=== PATIENT | male | born 1950 | race African-American/Black ===

== ENCOUNTER → 2017-03-21 | Outpatient (CLI) | payer OTHER, MEDICAID ==
[2017-03-21 10:08] VITALS: BP 131/84
[2017-03-21 14:44] LABS: BASOPHILS % (AUTO) 0.7 % (0.2-1.0); EOSINOPHILS % (AUTO) 0.8 % (0.9-2.9); HEMATOCRIT 42.9 % (42.0-54.0); HEMOGLOBIN 14.3 g/dL (13.5-18.0); LYMPHOCYTES # (AUTO) 1.1 X10^3/uL (1.3-2.9); LYMPHOCYTES % (AUTO) 36.2 % (21.0-51.0); MEAN CORPUSCULAR HEMOGLOBIN 29.5 pg (27.0-34.0); MEAN CORPUSCULAR HGB CONC 33.3 g/dL (33.0-35.0); MEAN CORPUSCULAR VOLUME 88.6 fL (80.0-100.0); MEAN PLATELET VOLUME 7.3 fL (7.4-11.0); MONOCYTES # (AUTO) 0.3 x10^3/uL (0.3-0.8); MONOCYTES % (AUTO) 11.5 % (0.0-13.0); NEUTROPHILS # (AUTO) 1.5 x10^3/uL (2.2-4.8); NEUTROPHILS % (AUTO) 50.8 % (42.0-75.0); PLATELET COUNT 236 X10^3/uL (150.0-450.0); RED BLOOD COUNT 4.84 X10^6/uL (4.7-6.0); RED CELL DISTRIBUTION WIDTH 13.3 % (11.6-16.5); WHITE BLOOD COUNT 3.1 X10^3/uL (3.6-10.0)
[2017-03-21 15:32] LABS: ALANINE AMINOTRANSFERASE 64 Units/L (12-78); ALKALINE PHOSPHATASE 75 Units/L (46-116); ASPARTATE AMINO TRANSFERASE 84 Units/L (15-37); BLOOD UREA NITROGEN 18 mg/dL (7-18); CALCIUM 9.2 mg/dL (8.5-10.1); CARBON DIOXIDE 22.1 mmol/L (21-32); CHLORIDE 104 mmol/L (98-107); CREATININE 1.32 mg/dL (0.70-1.30); GLUCOSE 93 mg/dL (65-99); SODIUM 141 mmol/L (136-145); TOTAL PROTEIN 8.4 g/dL (6.4-8.2); eGFR BLACK RACES > 60 (>60); eGFR NON BLACK RACES 58 (>60)
== END ==
LOC: LAB 14:18
PROVIDERS: ATTEND Internal Medicine Medical Oncology
DX: C22.0 Liver cell carcinoma (principal)
CPT/HCPCS: 36415; 80053; 85025

== ENCOUNTER → 2017-04-17 | Outpatient (CLI) | payer OTHER, MEDICAID ==
[2017-03-21 10:08] VITALS: BP 131/84
[2017-04-17 14:27] LABS: BASOPHILS % (AUTO) 0.8 % (0.2-1.0); EOSINOPHILS % (AUTO) 1.1 % (0.9-2.9); HEMATOCRIT 41.5 % (42.0-54.0); LYMPHOCYTES # (AUTO) 0.7 X10^3/uL (1.3-2.9); LYMPHOCYTES % (AUTO) 27.1 % (21.0-51.0); MEAN CORPUSCULAR HEMOGLOBIN 30.1 pg (27.0-34.0); MEAN CORPUSCULAR HGB CONC 33.6 g/dL (33.0-35.0); MEAN CORPUSCULAR VOLUME 89.4 fL (80.0-100.0); MEAN PLATELET VOLUME 8.1 fL (7.4-11.0); MONOCYTES # (AUTO) 0.3 x10^3/uL (0.3-0.8); MONOCYTES % (AUTO) 10.6 % (0.0-13.0); NEUTROPHILS # (AUTO) 1.7 x10^3/uL (2.2-4.8); NEUTROPHILS % (AUTO) 60.4 % (42.0-75.0); PLATELET COUNT 215 X10^3/uL (150.0-450.0); RED BLOOD COUNT 4.64 X10^6/uL (4.7-6.0); RED CELL DISTRIBUTION WIDTH 12.8 % (11.6-16.5); WHITE BLOOD COUNT 2.7 X10^3/uL (3.6-10.0)
[2017-04-17 14:37] LABS: ALANINE AMINOTRANSFERASE 52 Units/L (12-78); ALBUMIN 3.7 g/dL (3.4-5.0); ALKALINE PHOSPHATASE 76 Units/L (46-116); ASPARTATE AMINO TRANSFERASE 60 Units/L (15-37); BLOOD UREA NITROGEN 15 mg/dL (7-18); CARBON DIOXIDE 29.6 mmol/L (21-32); CHLORIDE 106 mmol/L (98-107); CREATININE 1.02 mg/dL (0.70-1.30); GLUCOSE 96 mg/dL (65-99); SODIUM 144 mmol/L (136-145); TOTAL PROTEIN 7.7 g/dL (6.4-8.2); eGFR BLACK RACES > 60 (>60); eGFR NON BLACK RACES > 60 (>60)
== END ==
LOC: LAB 13:23
PROVIDERS: ATTEND Internal Medicine Medical Oncology
DX: C22.0 Liver cell carcinoma (principal)
CPT/HCPCS: 36415; 80053; 85025

== ENCOUNTER → 2017-04-30 | Outpatient (CLI) | payer OTHER, MEDICAID ==
[2017-03-21 10:08] VITALS: BP 131/84
[2017-04-30 09:07] LABS: CREATININE 0.99 mg/dL (0.70-1.30)
--- NOTE | 2017-04-30 12:18 | MRI ---
MRI OF THE ABDOMEN WITHOUT AND WITH IV CONTRAST Clinical indication: Liver cancer Procedure: Multiplanar multi sequence MRI of the abdomen were obtained with and without the administ ration of intravenous contrast according to standard departmental protocol. Contrast: 15 cc of omni scan. Comparisons: CT 10/09/2016. MRI 10/23/2016 Findings: MRI of the abdomen without contrast: No significant iron or fat deposition in the liver or spleen. N o significant ascites. MRI of the abdomen with contrast: Liver and spleen are normal in size. Redemonstrated within segmen t 4A of the liver is a hypo enhancing mass measuring 8.7 x 5.3 cm on series 12/01/2000 image 25. Previ ously this measured 6.2 x 4.4 cm. There are new, multiple, similar signal, satellite lesions identif ied throughout the liver. For example a cluster of lesions in segment 4 B on series 1701, image 42. Gallbladder is present. No gallstones. No filling defects within the common bile duct. No ductal di latation. Pancreas demonstrates normal T1 signal. No pancreatic masses. Adrenal glands are normal. K idneys demonstrate normal cortical medullary differentiation. No hydronephrosis. Visualized bowel is unremarkable. No suspicious lymph nodes. Impression: 1. Interval enlargement of right liver mass with multiple new satellite lesions. Findings highly con cerning for malignancy. Recommend tissue sampling if not already performed. No definite distant meta static disease seen on this study. Reported By:
== END ==
LOC: RAD 08:35
PROVIDERS: ATTEND Surgery
DX: C22.0 Liver cell carcinoma (principal)
CPT/HCPCS: 36415; 74182; 82565; 84520

== ENCOUNTER 2017-06-03 09:40 | Emergency (ER) | payer OTHER, MEDICAID ==
[2017-06-03 09:43] VITALS: BP 135/84; BMI 21.5
--- NOTE | 2017-06-03 10:35 | DR.GENAD ---
HPI - PCP Primary Care Physician: Negro VILCHIS - Complaint/Symptoms Chief Complaint Doctors Comments: Patient presents with c/o right upper quadrant pain with inspiration. He was diagnosed with a liver mass via MRI (04/30) with comparison of previous test 10/23/16. He has been seeing Dr WHITMORE in [facility] but patient has been a No Show for four months. Dr Whitmore's office gave him an appoint for tomorrow at 1030 for evaluation of his MRI results Chief Complaint:: PT. C/O RIGHT CHEST WALL PAIN WHICH WORSENS ON INSPRIATION THAT STARTED A FEW DAYS AGO. PT. ALSO WAS HERE FOR A BLOOD PRESSURE CHECK, STATING HE HAS NOT TAKEN HIS MEDICATION IN A FEW DAYS. - Source History Provided: Patient - Mode of Arrival Mode of Arrival: Ambulatory - Timing Onset of Chief Complaint: 05/31/17 PMH - PMH Past Medical History: Yes Past Medical History: Hypertension Past Surgical History: Yes Surgical History: Ortho Surgery - Family History History of Family Medical Conditions: Yes Family Medical History: Sudden Cardiac - Social History Does patient currently use any type of tobacco product: Yes Have you used tobacco products in the last 12 months: Yes Type of Tobacco Use: Cigarettes Does any household member use tobacco: No Alcohol Use: Heavy Do you use any recreational Drugs:: Yes (MARIJUANA) Lives With: Alone Lives Where: Home - infectious screening In the last 2 months have you had wt loss of >10#?: NO Have you had fever, night sweats or hemotysis?: No Have you traveled outside the country in the last 6 months?: No Isolation: Standard ROS - Review of Systems Eyes: No Symptoms Reported ENTM: No Symptoms Reported Respiratoy: No Symptoms Reported Cardiovascular: No Symptoms Reported Gastrointestinal/Abdominal: No Symptoms Reported Genitourinary: No Symptoms Reported Neurological: No Symptoms Reported, Headache Integumentary: No Symptoms Reported Hematologic/Lymphatic: No Symptoms Reported Endocrine: No Symptoms Reported Psychiatric: No Symptoms Reported All Other Systems: Reviewed and Negative PE - Vital Signs Vitals: Temperature 98.2 F Pulse Rate 71 Respiratory Rate 17 Blood Pressure [Left Arm] 170/88 Blood Pressure 135/84 O2 Sat by Pulse Oximetry 97 - General Limitations: No Limitations General Appearance: Alert, In No Apparent Distress - Head Head Exam: Normal Inspection, Atraumatic - Eyes Eye exam: Normal Appearance, PERRL, EOMI - ENT ENT Exam: Normal Exam External Ear Exam: Normal External Inspection TM/Canal Exam: Bilateral Normal Nose Exam: Normal Nose Exam Mouth Exam: Normal Inspection Throat Exam: Normal Inspection - Neck Neck Exam: Normal Inspection - Chest Chest Inspection: Normal Inspection - Respiratory Respiratory Exam: Normal Lung Sounds Bilat Respiratory Exam: Bilateral Clear to Auscultation - Cardiovascular Cardiovascular Exam: Regular Rate, Normal Rhythm - Abdominal Exam Abdominal Exam: Normal Inspection Abdominal Tenderness: RUQ - Extremities Extremities Exam: Normal Inspection, Full ROM - Back Back Exam: Normal Inspection - Neurologic Neurological Exam: Alert, Oriented X3, CN II-XII Intact - Psychiatric Psychiatric Exam: Normal Affect - Skin Skin Exam: Warm, Dry, Intact - Diagnosis Discharge Problem: Hepatic cancer Qualifiers: Liver malignancy type: unspecified primary liver malignancy Qualified Code(s): C22.8 - Malignant neoplasm of liver, primary, unspecified as to type - Discharge Plan Condition: Stable - Follow ups/Referrals Follow ups/Referrals: BRET VILCHIS [Primary Care Provider] - 3 days - Instructions
== END 2017-06-03 10:44 | disposition home or self-care (01) ==
LOC: ER 09:47
DX: C22.8 Malignant neoplasm of liver, primary, unspecified as to type (principal)
CPT/HCPCS: 99281; 99282

== ENCOUNTER 2017-06-21 10:28 | Emergency (ER) | payer OTHER, MEDICAID ==
[2017-06-21 10:34] VITALS: BP 125/86; BMI 20.7
--- NOTE | 2017-06-21 10:49 | DR.ABDMALE ---
HPI - Time seen Time seen: 10:44 - PCP Primary Care Physician: KENNETH MACEDO - HPI comment HPI Comment: Patient with malignant neoplasm of the liver; has referal to see cancer doctor on 07/01/17. Patient presents with comlaint of right quadrant pain. Denies fever, vomiting or diarrhea. - Complaint Chief Complaint:: PT C/O RIGHT SIDE ABD PAIN AND HE STATES HE WAS DX WITH LIVER CANCER... AND I HAVE AN APPT WITH DR. LEE ON 07/01/16 .. - Mode of arrival Mode of Arrival: Ambulatory - Timing Onset of Chief Complaint: 06/18/17 PMH - PMH Past Medical History: Yes Past Medical History: Hypertension Past Medical History Comment: LIVER CANCER .. Past Surgical History: Yes Surgical History: Ortho Surgery Past Surgical History Comment: LIVER BIOPSY,,, - Family History History of Family Medical Conditions: Yes Family Medical History: Sudden Cardiac - Social History Does patient currently use any type of tobacco product: Yes Have you used tobacco products in the last 12 months: Yes Type of Tobacco Use: Cigarettes How many years tobacco product used: 50 Does any household member use tobacco: No Alcohol Use: None Do you use any recreational Drugs:: No Lives With: Family Lives Where: Home - infectious screening In the last 2 months have you had wt loss of >10#?: NO Have you had fever, night sweats or hemotysis?: No Have you traveled outside the country in the last 6 months?: No Isolation: Standard ROS - Review of Systems Eyes: No Symptoms Reported ENTM: No Symptoms Reported Respiratoy: No Symptoms Reported Cardiovascular: No Symptoms Reported Gastrointestinal/Abdominal: Abdominal Pain (right mid abdomen) Genitourinary: No Symptoms Reported Neurological: No Symptoms Reported Musculoskeletal: No Symptoms Reported Integumentary: No Symptoms Reported Hematologic/Lymphatic: No Symptoms Reported Endocrine: No Symptoms Reported Psychiatric: No Symptoms Reported All Other Systems: Reviewed and Negative PE - Vital Signs Vital Signs: Temp Pulse Resp BP BP Pulse Ox 06/21/17 10:30 98.1 F 69 22 125/86 100 06/03/17 09:40 135/84 12/18/16 12:15 170/88 - General Limitations: No Limitations General Appearance: Alert, In No Apparent Distress - Head Head Exam: Normal Inspection, Atraumatic - Eyes Eye exam: Normal Appearance, PERRL, EOMI - ENT ENT Exam: Normal Exam - Neck Neck Exam: Normal Inspection, Trachea Midline - Chest Chest Inspection: Normal Inspection - Respiratory Respiratory Exam: Normal Lung Sounds Bilat Respiratory Exam: Bilateral Clear to Auscultation - Cardiovascular Cardiovascular Exam: Regular Rate, Normal Rhythm - Abdominal Exam Abdominal Exam: Normal Inspection, Normal Bowel Sounds, Organomegaly (Liver paplapted 5cm below right costal margin) Abdominal Tenderness: RUQ - Rectal Rectal Exam: Deferred - Back Back Exam: Normal Inspection - Extremeties Extremities Exam: Normal Inspection - Exam: Male: Deferred - Neurologic Neurological Exam: Alert, Oriented X3, CN II-XII Intact - Psychiatric Psychiatric Exam: Normal Affect - Skin Skin Exam: Warm, Dry, Intact - Diagnosis Discharge Problem: Hepatic cancer Qualifiers: Liver malignancy type: hepatocellular carcinoma Qualified Code(s): C22.0 - Liver cell carcinoma - Discharge Plan Condition: Stable - Follow ups/Referrals Follow ups/Referrals: YUKI RANGEL [Primary Care Provider] - 3 days - Instructions
== END 2017-06-21 11:15 | disposition home or self-care (01) ==
LOC: ER 10:36
DX: C22.0 Liver cell carcinoma (principal)
CPT/HCPCS: 99281; 99282

== ENCOUNTER → 2017-07-01 | Outpatient (CLI) | payer OTHER, MEDICAID ==
[2017-06-21 10:34] VITALS: BP 125/86
[2017-07-01 10:28] LABS: EOSINOPHILS % (AUTO) 0.6 % (0.9-2.9); HEMATOCRIT 42.3 % (42.0-54.0); LYMPHOCYTES # (AUTO) 0.9 X10^3/uL (1.3-2.9); LYMPHOCYTES % (AUTO) 24.7 % (21.0-51.0); MEAN CORPUSCULAR HEMOGLOBIN 29.5 pg (27.0-34.0); MEAN CORPUSCULAR HGB CONC 33.2 g/dL (33.0-35.0); MEAN CORPUSCULAR VOLUME 88.7 fL (80.0-100.0); MEAN PLATELET VOLUME 7.8 fL (7.4-11.0); MONOCYTES # (AUTO) 0.3 x10^3/uL (0.3-0.8); MONOCYTES % (AUTO) 8.8 % (0.0-13.0); NEUTROPHILS # (AUTO) 2.4 x10^3/uL (2.2-4.8); NEUTROPHILS % (AUTO) 64.9 % (42.0-75.0); PLATELET COUNT 260 X10^3/uL (150.0-450.0); RED BLOOD COUNT 4.76 X10^6/uL (4.7-6.0); RED CELL DISTRIBUTION WIDTH 12.7 % (11.6-16.5); WHITE BLOOD COUNT 3.6 X10^3/uL (3.6-10.0)
[2017-07-01 10:46] LABS: ALANINE AMINOTRANSFERASE 40 Units/L (12-78); ALBUMIN 3.4 g/dL (3.4-5.0); ALKALINE PHOSPHATASE 192 Units/L (46-116); ASPARTATE AMINO TRANSFERASE 97 Units/L (15-37); BLOOD UREA NITROGEN 15 mg/dL (7-18); CALCIUM 8.7 mg/dL (8.5-10.1); CARBON DIOXIDE 27.2 mmol/L (21-32); CHLORIDE 105 mmol/L (98-107); CREATININE 0.93 mg/dL (0.70-1.30); GLUCOSE 107 mg/dL (65-99); SODIUM 141 mmol/L (136-145); TOTAL PROTEIN 7.4 g/dL (6.4-8.2); eGFR BLACK RACES > 60 (>60); eGFR NON BLACK RACES > 60 (>60)
== END ==
LOC: LAB 10:03
PROVIDERS: ATTEND Internal Medicine Medical Oncology
DX: C22.0 Liver cell carcinoma (principal)
CPT/HCPCS: 36415; 80053; 85025

== ENCOUNTER 2017-07-29 12:10 | Emergency (ER) | payer OTHER, MEDICAID ==
[2017-07-29 12:23] VITALS: BP 153/93; BMI 19.8
--- NOTE | 2017-07-29 13:31 | DR.GENAD ---
HPI - PCP Primary Care Physician: [id number] - Complaint/Symptoms Chief Complaint Doctors Comments: I agree with statement. Patient with liver cancer, still being workned by consultants. He has an appointment on tomorrow in [place] according to him. Chief Complaint:: RIGHT SIDE PAIN, PT STATES HE HAS LIVER CA AND HE HAS AN APPOINTMENT IN [place], [place] AT [facility] TOMORROW AT 10AM Self Treatment fo Chief Complaint: PT STATES PAIN IS WORSE TODAY THAN YESTERDAY. - Source History Provided: Patient - Mode of Arrival Mode of Arrival: Ambulatory - Timing Onset of Chief Complaint: 07/28/17 PMH - PMH Past Medical History: Yes Past Medical History: Hypertension Past Medical History Comment: LIVER CANCER Past Surgical History: No Surgical History: Ortho Surgery Past Surgical History Comment: BIOPSY OF LIVER - Family History History of Family Medical Conditions: Yes Family Medical History: Cancer - Social History Does patient currently use any type of tobacco product: Yes Have you used tobacco products in the last 12 months: Yes Type of Tobacco Use: Cigarettes How many years tobacco product used: 40 Does any household member use tobacco: Yes Alcohol Use: Occasionally Do you use any recreational Drugs:: No Lives With: Alone Lives Where: Home - infectious screening In the last 2 months have you had wt loss of >10#?: NO Have you had fever, night sweats or hemotysis?: No Have you traveled outside the country in the last 6 months?: No Isolation: Standard ROS - Review of Systems Eyes: No Symptoms Reported ENTM: No Symptoms Reported Respiratoy: No Symptoms Reported Cardiovascular: No Symptoms Reported Gastrointestinal/Abdominal: Other (hepatic cancer) Genitourinary: No Symptoms Reported Neurological: No Symptoms Reported Musculoskeletal: No Symptoms Reported Integumentary: No Symptoms Reported Hematologic/Lymphatic: No Symptoms Reported Endocrine: No Symptoms Reported Psychiatric: No Symptoms Reported All Other Systems: Reviewed and Negative PE - Vital Signs Vitals: Temperature 98.3 F Pulse Rate 71 Respiratory Rate 20 Blood Pressure [Left Arm] 170/88 Blood Pressure 153/93 O2 Sat by Pulse Oximetry 96 - General General Appearance: Alert, In No Apparent Distress - Head Head Exam: Normal Inspection - Eyes Eye exam: Normal Appearance, PERRL, EOMI - ENT ENT Exam: Normal Exam External Ear Exam: Normal External Inspection Nose Exam: Normal Nose Exam Mouth Exam: Normal Inspection Throat Exam: Normal Inspection - Neck Neck Exam: Normal Inspection, Full ROM - Chest Chest Inspection: Normal Inspection - Respiratory Respiratory Exam: Normal Lung Sounds Bilat Respiratory Exam: Bilateral Clear to Auscultation - Cardiovascular Cardiovascular Exam: Regular Rate - Abdominal Exam Abdominal Exam: Normal Inspection Abdominal Tenderness: RUQ, RLQ (tenderness) - Extremities Extremities Exam: Normal Inspection, Full ROM - Back Back Exam: Normal Inspection, Full ROM - Neurologic Neurological Exam: Alert, Oriented X3, CN II-XII Intact - Psychiatric Psychiatric Exam: Normal Affect - Skin Skin Exam: Warm, Dry, Intact Course - Treatment Treatment: Reviewed previous CT Abdomen - Diagnosis Discharge Problem: Hepatic cancer Qualifiers: Liver malignancy type: unspecified primary liver malignancy Qualified Code(s): C22.8 - Malignant neoplasm of liver, primary, unspecified as to type - Discharge Plan Condition: Stable - Follow ups/Referrals Follow ups/Referrals: YUKI RANGEL [Primary Care Provider] - 3 days - Instructions Instructions: Bunion (Hallux Valgus)
== END 2017-07-29 13:48 | disposition home or self-care (01) ==
LOC: ER 12:25
DX: C22.8 Malignant neoplasm of liver, primary, unspecified as to type (principal)
CPT/HCPCS: 99281; 99282

== ENCOUNTER 2017-09-03 15:11 | Inpatient (IN) | payer OTHER, MEDICAID ==
--- NOTE | 2017-09-03 15:30 | DR.GENAD ---
HPI - PCP Primary Care Physician: dr briscoe in [facility] [facility] - HPI Comment HPI Comment: PATIENT HAD BM YODAY. NAUSEATED. NO FEVER. HISTORY ASCITIS BUT ABDOMINAL SWELLING MORE PAST FEW DAYS. NO FEVER. SOB WHEN LYING DOWN. - Complaint/Symptoms Chief Complaint Doctors Comments: ABDOMINAL PAIN TIMES 4 DAYS.ABDOMINAL DISTENSION. LIVER CANCER. Chief Complaint:: patient stated he has liver cancer and his stomach has been hurting for 4 days and his doctor told him to come to the hospital. - Nurses notes reviewed Nurses Notes Review: Yes - Source History Provided: Patient - Mode of Arrival Mode of Arrival: Ambulatory - Timing Onset of Chief Complaint: 08/30/17 Came on: Suddenly - Duration Duration: Constant Duration: Days - Severity Severity: Moderate PMH - PMH Past Medical History: Yes Past Medical History: Hypertension Past Surgical History: Yes Surgical History: Ortho Surgery - Family History History of Family Medical Conditions: Yes Family Medical History: Cancer - Social History Does patient currently use any type of tobacco product: Yes Have you used tobacco products in the last 12 months: Yes Type of Tobacco Use: Cigarettes How many years tobacco product used: 45 Does any household member use tobacco: No Alcohol Use: None Do you use any recreational Drugs:: No Lives With: Alone Lives Where: Home - infectious screening In the last 2 months have you had wt loss of >10#?: NO Have you had fever, night sweats or hemotysis?: No Have you traveled outside the country in the last 6 months?: No Isolation: Standard ROS - Review of Systems Constitutional: Weakness, Fatigue, Loss of Appetite. negative: Chills, Diaphoresis, Fever Eyes: No Symptoms Reported. negative: Eye Pain, Discharge ENTM: negative: Ear Pain, Nose Discharge, Nose Congestion, Throat Pain Respiratoy: Non-Productive Cough, Short of Breath. negative: Productive Cough, Wheezing, Hemoptysis Cardiovascular: Chest Pain. negative: Edema, Palpitations Gastrointestinal/Abdominal: Abdominal Pain, Nausea. negative: Diarrhea, Vomiting Genitourinary: Pain. negative: Dysuria, Frequency, Hematuria Neurological: Weakness, Dizziness. negative: Headache Musculoskeletal: Back Pain, Muscle Pain Integumentary: Juandice. negative: Change in Hair/Nails Hematologic/Lymphatic: Easy Bleeding, Easy Bruising Endocrine: No Symptoms Reported All Other Systems: Reviewed and Negative PE - Vital Signs Vitals: Temperature 98.6 F Pulse Rate 80 Respiratory Rate 18 Blood Pressure [Left Arm] 170/88 Blood Pressure 133/80 O2 Sat by Pulse Oximetry 100 - General Limitations: No Limitations General Appearance: Alert, In Distress - Head Head Exam: Normal Inspection - Eyes Eye exam: PERRL, EOMI, Scleral Icterus. negative: Conjunctival Injection - ENT ENT Exam: Normal External Ear Exam External Ear Exam: Normal External Inspection TM/Canal Exam: Bilateral Normal Nose Exam: Normal Nose Exam Mouth Exam: Normal Inspection Throat Exam: Normal Inspection - Neck Neck Exam: Trachea Midline - Chest Chest Inspection: Symmetric Chest Wall Rise - Respiratory Respiratory Exam: Normal Lung Sounds Bilat Respiratory Exam: Bilateral Rhonchi, Upper Rhonchi, Lower Rhonchi - Cardiovascular Cardiovascular Exam: Regular Rate, Normal Rhythm, Normal Heart Sounds - Abdominal Exam Abdominal Exam: Normal Bowel Sounds, Distention, Tenderness Abdominal Tenderness: Diffuse, Moderate - Extremities Extremities Exam: negative: Calf Tenderness - Back Back Exam: Paraspinal Tenderness, Vertebral Tenderness (LOWER BACK) - Neurologic Neurological Exam: Alert, Oriented X3, CN II-XII Intact, Normal Gait, Reflexes Normal. negative: Motor Sensory Deficit - Psychiatric Psychiatric Exam: Anxious - Skin Skin Exam: Erythema MDM - Differential Diagnosis Differential Diagnosis: ASCITIS, RESP DISTRESS, ABDOMINAL PAIN, UTI, BOWEL OBSTRUCTION Course - Treatment Treatment: SEE ORDERS. - Consultation Consultation Comments: DISCUSS PATIENT WITH DR. TEE. HE WILL ADMIT PATIENT. - Education/Counseling Education/Counseling: Patient, Education Educated On: Treatment, Diagnosis ROR - Labs Reviewed Laboratory Results Reviewed?: Yes Result Diagrams: 09/03/17 15:42 09/03/17 15:42 - XRAY XRAY Interpreted by: Radiologist XRAY Findings: REPORT DISCUSS WITH PATIENT. - Diagnosis Discharge Problem: Ascites Qualifiers: Ascites type: malignant Qualified Code(s): R18.0 - Malignant ascites Abdominal pain Qualifiers: Abdominal location: generalized Qualified Code(s): R10.84 - Generalized abdominal pain Liver cancer Qualifiers: Liver malignancy type: unspecified liver malignancy Qualified Code(s): C22.9 - Malignant neoplasm of liver, not specified as primary or secondary - Discharge Plan Disposition: ADMITTED INPATIENT Condition: Stable - Follow ups/Referrals - Instructions
[2017-09-03] MEDS ORDERED: DILAUDID INJ IM ONE (15:48)
[2017-09-03] MEDS ORDERED: DILAUDID INJ ONE (15:51)
[2017-09-03 15:52] LABS: BASOPHILS % (AUTO) 0.2 % (0.2-1.0); EOSINOPHILS % (AUTO) 0.3 % (0.9-2.9); HEMATOCRIT 37.5 % (42.0-54.0); HEMOGLOBIN 12.6 g/dL (13.5-18.0); LYMPHOCYTES # (AUTO) 0.7 X10^3/uL (1.3-2.9); LYMPHOCYTES % (AUTO) 10.5 % (21.0-51.0); MEAN CORPUSCULAR HEMOGLOBIN 26.9 pg (27.0-34.0); MEAN CORPUSCULAR HGB CONC 33.5 g/dL (33.0-35.0); MEAN CORPUSCULAR VOLUME 80.2 fL (80.0-100.0); MEAN PLATELET VOLUME 8.1 fL (7.4-11.0); MONOCYTES # (AUTO) 0.3 x10^3/uL (0.3-0.8); MONOCYTES % (AUTO) 4.7 % (0.0-13.0); NEUTROPHILS # (AUTO) 5.4 x10^3/uL (2.2-4.8); NEUTROPHILS % (AUTO) 84.3 % (42.0-75.0); PLATELET COUNT 321 X10^3/uL (150.0-450.0); RED BLOOD COUNT 4.67 X10^6/uL (4.7-6.0); RED CELL DISTRIBUTION WIDTH 14.9 % (11.6-16.5); WHITE BLOOD COUNT 6.4 X10^3/uL (3.6-10.0)
[2017-09-03 16:03] LABS: ALANINE AMINOTRANSFERASE 87 Units/L (12-78); ALBUMIN 3.3 g/dL (3.4-5.0); ALKALINE PHOSPHATASE 374 Units/L (46-116); AMYLASE 101 Units/L (25-115); ASPARTATE AMINO TRANSFERASE 408 Units/L (15-37); BLOOD UREA NITROGEN 11 mg/dL (7-18); CALCIUM 8.9 mg/dL (8.5-10.1); CHLORIDE 98 mmol/L (98-107); COR CA(FOR HYPOALB) 9.5 mg/dL (8.5-10.1); CREATININE 0.92 mg/dL (0.70-1.30); LIPASE 132 Units/L (73-393); SODIUM 134 mmol/L (136-145); TOTAL PROTEIN 7.9 g/dL (6.4-8.2); eGFR BLACK RACES > 60 (>60); eGFR NON BLACK RACES > 60 (>60)
[2017-09-03 16:28] LABS: BILIRUBIN,URINE 1+ (NEGATIVE); BLOOD/HEMOGLOBIN,URINE NEGATIVE (NEGATIVE); GLUCOSE, URINE NEGATIVE (NEGATIVE); KETONES,URINE 1+ (NEGATIVE); LEUKOCYTE ESTERASE ,URINE 1+ (NEGATIVE); NITRITES,URINE NEGATIVE (NEGATIVE); PROTEIN,URINE 2+ (NEGATIVE); UROBILINOGEN,URINE 2+ (NORMAL)
[2017-09-03 16:40] LABS: APPEARANCE,URINE SLIGHTLY HAZY (CLEAR); BACTERIA,URINE 1+ /HPF (NEGATIVE); COLOR,URINE DARK YELLOW (YELLOW); SQUAMOUS EPITHELIAL CELL,UR RARE /HPF (NEGATIVE)
[2017-09-03 16:41] LABS: AMORPHOUS SEDIMENT,UR TRACE /HPF (NEGATIVE); HYALINE CASTS, URINE RARE /LPF (NEGATIVE)
--- NOTE | 2017-09-03 17:09 | CT ---
History: Abdominal pain Exam: CT abdomen and pelvis without contrast Comparison: 10/09/2016 Technique: Multiple axial images of the abdomen and pelvis were obtained from lung base to superior p ortion of the iliac crest without the administration of IV contrast. Findings: Lung bases are essentially unremarkable. The spleen, pancreas, kidneys, and adrenal glands are unrema rkable non contrasted CT appearance. Heterogeneous attenuation throughout the right lobe of the liver is observed consistent with patient's history of neoplasm of the liver. Diffuse abdominal ascites is observed lay within the right pericolic gutter as well as the left pericolic gutter. Fluid is noted layering within the pelvis. No small bowel wall thickening or bowel dilatation can be observed. Diffu se diverticular changes throughout sigmoid colon or instantly noted without CT evidence for acute div erticulitis. The bony structure grossly intact. Urinary bladder is grossly unremarkable. Impression: Diffuse abdominal ascites secondary to associated liver mass with heterogeneous attenuation throughou t the right lobe of the liver. This liver lesion is not completely characterized without the benefit of IV contrast. Diffuse diverticular change without CT evidence for acute diverticulitis. Reported By:
[2017-09-03] MEDS ORDERED: LASIX IVP ONE ×2 (17:22→18:00)
[2017-09-03] MEDS: LASIX IVP SCH (18:30)
[2017-09-03] MEDS: NICOTINE PATCH TD SCH (19:55)
[2017-09-03] MEDS ORDERED: ROXICODONE TAB 5 MG PO PRN (20:05)
[2017-09-03] MEDS ORDERED: DILAUDID INJ IM PRN (20:43)
[2017-09-03] MEDS ORDERED: ZOFRAN INJ 4 MG VIAL IVP PRN (20:43)
[2017-09-04] MEDS: LASIX IVP SCH ×3 (00:39→21:36)
[2017-09-04 05:23] LABS: BASOPHILS % (AUTO) 0.6 % (0.2-1.0); EOSINOPHILS % (AUTO) 0.6 % (0.9-2.9); HEMATOCRIT 31.9 % (42.0-54.0); HEMOGLOBIN 10.7 g/dL (13.5-18.0); LYMPHOCYTES # (AUTO) 0.8 X10^3/uL (1.3-2.9); LYMPHOCYTES % (AUTO) 13.4 % (21.0-51.0); MEAN CORPUSCULAR HEMOGLOBIN 26.9 pg (27.0-34.0); MEAN CORPUSCULAR HGB CONC 33.5 g/dL (33.0-35.0); MEAN CORPUSCULAR VOLUME 80.3 fL (80.0-100.0); MEAN PLATELET VOLUME 8.3 fL (7.4-11.0); MONOCYTES # (AUTO) 0.6 x10^3/uL (0.3-0.8); NEUTROPHILS # (AUTO) 4.7 x10^3/uL (2.2-4.8); NEUTROPHILS % (AUTO) 76.4 % (42.0-75.0); PLATELET COUNT 284 X10^3/uL (150.0-450.0); RED BLOOD COUNT 3.97 X10^6/uL (4.7-6.0); RED CELL DISTRIBUTION WIDTH 15.1 % (11.6-16.5); WHITE BLOOD COUNT 6.2 X10^3/uL (3.6-10.0)
[2017-09-04 05:30] LABS: BLOOD UREA NITROGEN 12 mg/dL (7-18); CALCIUM 8.6 mg/dL (8.5-10.1); CARBON DIOXIDE 25.9 mmol/L (21-32); CHLORIDE 99 mmol/L (98-107); CREATININE 0.95 mg/dL (0.70-1.30); SODIUM 135 mmol/L (136-145); eGFR BLACK RACES > 60 (>60); eGFR NON BLACK RACES > 60 (>60)
[2017-09-04] MEDS: MICRO K EXTEN CAP 10 MEQ PO SCH (10:06)
[2017-09-04] MEDS: NICOTINE PATCH TD SCH (10:06)
[2017-09-04] MEDS: DILAUDID INJ IVP PRN (14:45)
--- NOTE | 2017-09-04 17:00 | DR.CONSULT ---
Consult - Consultation for Day of: Date: 09/04/17 - Chief Complaint Chief Complaint: Abdominal pain, Ascites - Allergies Allergies/Adverse Reactions: Allergies Allergy/AdvReac Type Severity Reaction Status Date / Time No Known Drug Allergies Allergy Verified 09/03/17 20:12 - History of Present Illness History of Present Illness: Patient is a 67yo male who was referred for ascites. Patient also has complaints of RUQ & Epigastric pain. Patient has a hx of HepC which was Dx and Tx 25-30ys ago. Patient denies dysphagia, dyspepsia, n/ v, melena, hematochezia. he states that he has had some diarrhea. Abdominal CT showed diffuse abdominal ascites secondary to associated liver mass with heteroheneous attenuation throughout the right lobe of the liver. Patient has never had an EGD or Colonoscopy and denies any family history of colon cancer - Past Medical History Past Medical History: Hypertension - Past Surgical History Surgical History: Ortho Surgery - Family History Family Medical History: Cancer - Social History Does patient currently use any type of tobacco product: Yes Have you used tobacco products in the last 12 months: Yes Type of Tobacco Use: Cigarettes How many years tobacco product used: 45 Does any household member use tobacco: No Alcohol Use: None Drug Use: Marijuana - Medications Home Medications: Amlodipine Besylate [NORVASC 5 MG *] 5 mg PO DAILY 09/03/17 [History Confirmed 09/03/17] Oxycodone HCl [Oxycodone HCl] 5 mg PO Q6H PRN 09/03/17 [History Confirmed ] Sorafenib Tosylate [Nexavar] 400 mg PO BID 09/03/17 [History Confirmed 09/03/17] - Review of Systems Constitutional: No Symptoms Reported Eyes: No Symptoms Reported ENT: No Symptoms Reported Respiratory: No Symptoms Reported Cardiovascular: No Symptoms Reported Gastrointestinal: Abdominal Pain (RUQ and Epigastric). denies: Nausea, Vomiting , Diarrhea, Constipation, Melena, Hematochezia Genitourinary: No Symptoms Reported Musculoskeletal: No Symptoms Reported Skin: No Symptoms Reported Neurological: No Symptoms Reported - Physical Exam Vital Signs: Temperature 99.0 F Pulse Rate [Left] 73 Pulse Rate 80 Respiratory Rate 18 Blood Pressure [Left Arm] 123/82 Blood Pressure 133/80 O2 Sat by Pulse Oximetry 98 Oriented: Normal Eyes: Normal Ear: Normal Nose: Normal Throat: Normal Respiratory: Clear Throughout Cardiovascular: Normal : Normal Auscultation: Bowel Sounds: Normal Palpation: Other (distention noted) Tenderness: RUQ, Epigastric Skin: Normal Musculoskeletal: Normal Psychiatric: Normal Mood Description: Calm Affect: Normal Speech Pattern: Clear - Plan Plan: 1. Diffuse Ascites secondary to liver mass- Paracentesis. 2. RUQ and epigastric pain - NPO past minight schedule EGD for AM. 3. Chronic Viral Hepatitis C - EGD in AM, Hepatitis Genotype and quant will follow outpatient for treatment. 4. Abnormal CT of abdomen liver mass - liver panel, MRI with contrast of liver
[2017-09-04 17:28] LABS: ALBUMIN 2.9 g/dL (3.4-5.0); BILIRUBIN,DIRECT 1.38 mg/dL (0-0.2); TOTAL PROTEIN 6.9 g/dL (6.4-8.2)
--- NOTE | 2017-09-04 21:06 | DR.H&P ---
H&P - History & Physical for Day of: H&P Date: 09/03/17 - Chief Complaint Chief Complaint: abdominal pain - Allergies Allergies/Adverse Reactions: Allergies Allergy/AdvReac Type Severity Reaction Status Date / Time No Known Drug Allergies Allergy Verified 09/03/17 20:12 - History of Present Illness History of Present Illness: is a 67 year old black male who presented to the emergency room with complaints of abdominal pain that began four days prior to presenting to ER. Patient reports abdominal distension. Patient reports a history of liver cancer. He contacted his PCP and was instructed to come to the hospital for further evaluation. Patient states that he has had a history of ascites before, but abdominal distention is worse the past few days. He denies fever. Associated symptoms include weakness, fatigue, loss of appetite , non-productive cough, shortness of breath, chest pain, abdominal pain, nausea , dizziness and muscle pain. On examination, lungs are noted with rhonchi bilaterally to auscultation. Abdomen is distended and tender to palpation. Normal bowel sounds are noted in all quadrants. On arrival to ER, his vitals were 98.6, 80, 18, 100%RA, 133/80. Labs were obtained. Abnormal lab values include the following: RBC 4.67, Hgb 12.6, Hct 37.5, MCH 26.9, Neut% 84.3, Lymph % 10.5, Eos% 0.3, Neut# 5.4, Lymph# 0.7, Sodium 134, Total Bilirubin 2.70, AST 408, ALT 877, Alk Phos 374, Albumin 3.3, Globulin 4.6, A/G Ratio 0.7. Urinalysis reported: Color Dark Yellow, Appearance Slightly Hazy, Protein 2+, Ketones 1+, Bilirubin 1+, Urobiligoen 2+, Leuk [place] 1+, RBC 1-2, WBC 1-2, Squam Epith Cells Rare, Amorph Sed Trace, Bacteria 1+, Hyaline Casts Rare. A CT abd/pelvis was obtained and reported: Diffuse abdominal ascites secondary to associated liver mass with heterogenous attenuation throughout the right lobe of the lover. This liver lesion is not completely characterized without the benefit of IV contrast. Diffuse diverticular change without CT evidence for acute diverticulitis. We admitted patient for further treatment and evaluation. We will consult , [employer] Operator. We will follow up with am labs and continue to monitor patient. - Past Medical History Past Medical History: Anxiety, Hypertension Additional Medical History: LIVER CANCER, - Past Surgical History Surgical History: Ortho Surgery Additional Surgical History: LIVER BIOPSY - Family History Family Medical History: Cancer - Social History Does patient currently use any type of tobacco product: Yes Have you used tobacco products in the last 12 months: Yes Type of Tobacco Use: Cigarettes How many years tobacco product used: 45 Does any household member use tobacco: No Alcohol Use: None Drug Use: Marijuana - Medications Home Medications: Amlodipine Besylate [NORVASC 5 MG *] 5 mg PO DAILY 09/03/17 [History Confirmed 09/03/17] Oxycodone HCl [Oxycodone HCl] 5 mg PO Q6H PRN 09/03/17 [History Confirmed ] Sorafenib Tosylate [Nexavar] 400 mg PO BID 09/03/17 [History Confirmed 09/03/17] - Review of Systems Constitutional: Weakness Eyes: No Symptoms Reported ENT: No Symptoms Reported Respiratory: Cough, Shortness of Breath, SOB with Excertion Cardiovascular: Chest Pain Gastrointestinal: Nausea, Abdominal Pain Musculoskeletal: Back Pain Skin: No Symptoms Reported Neurological: Weakness - Physical Exam Vital Signs: Temperature 99.0 F Pulse Rate [Left] 73 Pulse Rate 80 Respiratory Rate 18 Blood Pressure [Left Arm] 123/82 Blood Pressure 133/80 O2 Sat by Pulse Oximetry 98 Oriented: Normal Eyes: Normal Ear: Normal Nose: Normal Throat: Normal Respiratory: Rhonchi Throughout Cardiovascular: Normal : Normal Auscultation: Bowel Sounds: Normal Palpation: Normal Tenderness: Diffuse Skin: Normal Musculoskeletal: Normal Psychiatric: Normal Mood Description: Calm Affect: Normal Speech Pattern: Clear - Assessment/Plan (1) Abdominal pain Qualifiers: Abdominal location: generalized Qualified Code(s): R10.84 - Generalized abdominal pain Status: Acute Plan: DILAUDID 2MG Q4H PRN, OXYCODONE 5MG Q6H PRN, CONTINUE TO MONITOR (2) Ascites Qualifiers: Ascites type: malignant Qualified Code(s): R18.0 - Malignant ascites Status: Acute Plan: LASIX 40MG IV BID, GI CONSULT, CONTINUE TO MONITOR (3) Hepatic cancer Qualifiers: Liver malignancy type: unspecified liver malignancy Qualified Code(s): C22.9 - Malignant neoplasm of liver, not specified as primary or secondary Status: Chronic Plan: CONTINUE TO MONITOR
[2017-09-05 05:16] LABS: BASOPHILS # (AUTO) 0.1 X10^3/uL (0.0-0.1); BASOPHILS % (AUTO) 1.7 % (0.2-1.0); EOSINOPHILS % (AUTO) 0.2 % (0.9-2.9); HEMATOCRIT 32.4 % (42.0-54.0); MEAN CORPUSCULAR HGB CONC 33.9 g/dL (33.0-35.0); MEAN CORPUSCULAR VOLUME 79.5 fL (80.0-100.0); MEAN PLATELET VOLUME 8.8 fL (7.4-11.0); MONOCYTES # (AUTO) 0.4 x10^3/uL (0.3-0.8); MONOCYTES % (AUTO) 5.2 % (0.0-13.0); NEUTROPHILS # (AUTO) 5.6 x10^3/uL (2.2-4.8); NEUTROPHILS % (AUTO) 78.9 % (42.0-75.0); PLATELET COUNT 315 X10^3/uL (150.0-450.0); RED BLOOD COUNT 4.08 X10^6/uL (4.7-6.0); RED CELL DISTRIBUTION WIDTH 14.9 % (11.6-16.5); WHITE BLOOD COUNT 7.2 X10^3/uL (3.6-10.0)
[2017-09-05 05:18] LABS: AMMONIA 71 umol/L (11-32)
[2017-09-05 05:23] LABS: ALANINE AMINOTRANSFERASE 85 Units/L (12-78); ALKALINE PHOSPHATASE 316 Units/L (46-116); ASPARTATE AMINO TRANSFERASE 469 Units/L (15-37); BLOOD UREA NITROGEN 15 mg/dL (7-18); CALCIUM 8.6 mg/dL (8.5-10.1); CARBON DIOXIDE 25.1 mmol/L (21-32); CHLORIDE 98 mmol/L (98-107); COR CA(FOR HYPOALB) 9.4 mg/dL (8.5-10.1); CREATININE 0.92 mg/dL (0.70-1.30); SODIUM 135 mmol/L (136-145); TOTAL PROTEIN 7.4 g/dL (6.4-8.2); eGFR BLACK RACES > 60 (>60); eGFR NON BLACK RACES > 60 (>60)
[2017-09-05] MEDS: NICOTINE PATCH TD SCH (10:45)
[2017-09-05] MEDS: LASIX IVP SCH ×3 (10:45→21:20)
[2017-09-05] MEDS: MICRO K EXTEN CAP 10 MEQ PO SCH (10:46)
--- NOTE | 2017-09-05 11:01 | PCM.PROG ---
Progress Note - Progress Note for Day of Date: 09/04/17 - Subjective Subjective: WAS ADMITTED FOR ABDOMINAL PAIN AND ASCITES. TODAY, HE IS ALERT AND ORIENTED, LYING IN BED ON MORNING ROUNDS. HE CONTINUES WITH COMPLAINTS OF ABDOMINAL PAIN. ON EXAMINATION, LUNGS ARE NOTED CLEAR TO AUSCULTATION. ABDOMEN IS DISTENDED AND TENDER. PATIENT REPORTS DIFFUSE TENDERNESS. PATIENT REPORTS A HISTORY OF HEPATITIS C AND LIVER CANCER. HIS VITAL SIGNS TODAY ARE 98.3-111-20-96%-93/69. LABS WERE OBTAINED THIS MORNING. ABNORMAL LAB VALUES INCLUDE THE FOLLOWING: RBC 3.97, HGB 10.7, HCT 31.9, SODIUM 135, TOTAL BILI 2.50, DIRECT BILI 1.38, AST 393, ALT 79, ALK PHOS 307, ALBUMIN 2.9, AMMONIA 69. GASTROENTEROLOGY CONSULTED WITH PATIENT TODAY. A PARACENTESIS WILL BE SCHEDULED FOR TOMORROW. HE WILL ALSO BE NPO PAST MIDNIGHT FOR A EGD IN THE MORNING. A HEPATITIS PANEL AND MRI WITH CONTRAST OF THE LIVER WAS ALSO ORDERED. WE PLAN TO FOLLOW UP WITH AM LABS AND CONTINUE TO MONITOR PATIENT. - Past Medical Family Social History Past Med/Fam/Surg Hx: No changes since H&P Allergies: Allergies No Known Drug Allergies Allergy (Verified 09/03/17 20:12) - Review of Systems ROS: No change since H&P - Vital Signs and I&O's Vital Signs: Temperature 99.9 F Pulse Rate [Left] 76 Pulse Rate 80 Respiratory Rate 20 Blood Pressure [Left Arm] 139/87 Blood Pressure 133/80 O2 Sat by Pulse Oximetry 98 Intake and Output: Intake & Output 09/02/17 09/03/17 09/04/17 09/05/17 11:59 11:59 11:59 11:59 Intake Total 260 1080 Output Total 375 Balance 260 705 - Physical Exam Oriented: Normal Eyes: Normal Ear: Normal Nose: Normal Throat: Normal Cardiovascular: Normal : Normal Auscultation: Bowel Sounds: Normal Palpation: Normal Tenderness: Diffuse Skin: Normal Musculoskeletal: Normal Psychiatric: Normal Mood Description: Calm Affect: Normal Speech Pattern: Clear - Laboratory and Diagnostics Result Diagrams: 09/05/17 04:15 09/05/17 04:15 Labs: Laboratory WBC 7.2 X10^3/uL (3.6-10.0) 09/05/17 04:15 RBC 4.08 X10^6/uL (4.7-6.0) L 09/05/17 04:15 Hgb 11.0 g/dL (13.5-18.0) L 09/05/17 04:15 Hct 32.4 % (42.0-54.0) L 09/05/17 04:15 MCV 79.5 fL (80.0-100.0) L 09/05/17 04:15 MCH 27.0 pg (27.0-34.0) 09/05/17 04:15 MCHC 33.9 g/dL (33.0-35.0) 09/05/17 04:15 RDW 14.9 % (11.6-16.5) 09/05/17 04:15 Plt Count 315 X10^3/uL (150.0-450.0) 09/05/17 04:15 MPV 8.8 fL (7.4-11.0) 09/05/17 04:15 Neut % 78.9 % (42.0-75.0) H 09/05/17 04:15 Lymph % 14.0 % (21.0-51.0) L 09/05/17 04:15 [place] % 5.2 % (0.0-13.0) 09/05/17 04:15 Eos % 0.2 % (0.9-2.9) L 09/05/17 04:15 Baso % 1.7 % (0.2-1.0) H 09/05/17 04:15 Neut # 5.6 x10^3/uL (2.2-4.8) H 09/05/17 04:15 Lymph # 1.0 X10^3/uL (1.3-2.9) L 09/05/17 04:15 [place] # 0.4 x10^3/uL (0.3-0.8) 09/05/17 04:15 Eos # 0.0 x10^3/uL (0.0-0.2) 09/05/17 04:15 Baso # 0.1 X10^3/uL (0.0-0.1) 09/05/17 04:15 Absolute Nucleated RBC 0.1 /100WBC 09/05/17 04:15 INR Target Range - 09/04/17 04:50 INR 1.30 (0.8-1.3) 09/04/17 04:50 PTT 30.9 SECONDS (22.9-36.5) 09/04/17 04:50 PTT Comment - 09/04/17 04:50 Sodium 135 mmol/L (136-145) L 09/05/17 04:15 Corrected Sodium TNP 09/05/17 04:15 Potassium 4.2 mmol/L (3.5-5.1) 09/05/17 04:15 Chloride 98 mmol/L (98-107) 09/05/17 04:15 Carbon Dioxide 25.1 mmol/L (21-32) 09/05/17 04:15 BUN 15 mg/dL (7-18) 09/05/17 04:15 Creatinine 0.92 mg/dL (0.70-1.30) 09/05/17 04:15 Est GFR (MDRD) Af Amer > 60 (>60) 09/05/17 04:15 Est GFR (MDRD) Non-Af > 60 (>60) 09/05/17 04:15 Glucose 90 mg/dL (65-99) 09/05/17 04:15 Hemoglobin A1c 5.3 % (4.5-6.2) 09/03/17 15:42 Calcium 8.6 mg/dL (8.5-10.1) 09/05/17 04:15 Corrected Calcium 9.4 mg/dL (8.5-10.1) 09/05/17 04:15 Total Bilirubin 2.90 mg/dL (0.2-1.0) H 09/05/17 04:15 Direct Bilirubin 1.38 mg/dL (0-0.2) H 09/04/17 00:00 Indirect Bilirubin 1.12 mg/dL (0.2-0.8) H 09/04/17 00:00 AST 469 Units/L (15-37) H 09/05/17 04:15 ALT 85 Units/L (12-78) H 09/05/17 04:15 Alkaline Phosphatase 316 Units/L (46-116) H 09/05/17 04:15 Ammonia 71 umol/L (11-32) H 09/05/17 04:15 Total Protein 7.4 g/dL (6.4-8.2) 09/05/17 04:15 Albumin 3.0 g/dL (3.4-5.0) L 09/05/17 04:15 Globulin 4.4 g/dL (2.5-4.5) 09/05/17 04:15 Albumin/Globulin Ratio 0.7 Ratio (1.1-2.1) L 09/05/17 04:15 Amylase 101 Units/L (25-115) 09/03/17 15:42 Lipase 132 Units/L (73-393) 09/03/17 15:42 Specimen Type Clean catch urine 09/03/17 16:17 Urine Color Dark yellow (YELLOW) 09/03/17 16:17 Urine Appearance Slightly hazy (CLEAR) 09/03/17 16:17 Urine pH 6.0 (5.0 - 8.0) 09/03/17 16:17 Ur Specific [place] 1.020 (1.000-1.030) 09/03/17 16:17 Urine Protein 2+ (NEGATIVE) 09/03/17 16:17 Urine Glucose (UA) Negative (NEGATIVE) 09/03/17 16:17 Urine Ketones 1+ (NEGATIVE) 09/03/17 16:17 Urine Occult Blood Negative (NEGATIVE) 09/03/17 16:17 Urine Nitrite Negative (NEGATIVE) 09/03/17 16:17 Urine Bilirubin 1+ (NEGATIVE) 09/03/17 16:17 Urine Urobilinogen 2+ (NORMAL) 09/03/17 16:17 Ur Leukocyte Esterase 1+ (NEGATIVE) 09/03/17 16:17 Urine RBC 1-2 /HPF (NEGATIVE) 09/03/17 16:17 Urine WBC 1-2 /HPF (NEGATIVE) 09/03/17 16:17 Ur Squamous Epith Cells Rare /HPF (NEGATIVE) 09/03/17 16:17 Amorphous Sediment Trace /HPF (NEGATIVE) 09/03/17 16:17 Urine Bacteria 1+ /HPF (NEGATIVE) 09/03/17 16:17 Hyaline Casts Rare /LPF (NEGATIVE) 09/03/17 16:17 Ur Culture Indicated? No/not indicated 09/03/17 16:17 - Plan (1) Abdominal pain Status: Acute Qualifiers: Abdominal location: generalized Qualified Code(s): R10.84 - Generalized abdominal pain Plan: EGD SCHEDULE FOR TOMORROW MORNING, DILAUDID 2MG Q4H PRN, OXYCODONE 5MG Q6H PRN, CONTINUE TO MONITOR (2) Ascites Status: Acute Qualifiers: Ascites type: malignant Qualified Code(s): R18.0 - Malignant ascites Plan: PARACENTESIS SCHEDULED FOR TOMORROW MORNING, LASIX 40MG IV BID, CONTINUE TO MONITOR (3) Hepatic cancer Status: Chronic Qualifiers: Liver malignancy type: unspecified liver malignancy Qualified Code(s): C22.9 - Malignant neoplasm of liver, not specified as primary or secondary Plan: CONTINUE TO MONITOR, MRI WITH CONTRAST OF THE LIVER (4) Hepatitis C Status: Chronic Qualifiers: Viral hepatitis chronicity: chronic Hepatic coma status: with hepatic coma Qualified Code(s): B18.2 - Chronic viral hepatitis C Plan: HEPATITIS PANEL
[2017-09-05] MEDS: SORAFENIB TOSYLATE 400 MG PO SCH ×2 (12:31→21:16)
[2017-09-05] MEDS: NORVASC TAB 5 MG PO SCH (12:31)
[2017-09-05] MEDS: CHRONULAC PO SCH ×3 (12:32→21:17)
[2017-09-05] MEDS ORDERED: NS 1000 ML 1,000 ML ONE (12:32)
[2017-09-05] MEDS ORDERED: DIPRIVAN VIAL 20 ML ONE (12:41)
[2017-09-05] MEDS ORDERED: RESTORIL CAP 15 MG PO PRN (18:51)
[2017-09-06] MEDS: DILAUDID INJ IVP PRN (04:53)
[2017-09-06 05:34] LABS: BASOPHILS % (AUTO) 0.8 % (0.2-1.0); EOSINOPHILS % (AUTO) 0.8 % (0.9-2.9); HEMOGLOBIN 11.5 g/dL (13.5-18.0); MEAN CORPUSCULAR HEMOGLOBIN 27.2 pg (27.0-34.0); MEAN CORPUSCULAR HGB CONC 33.8 g/dL (33.0-35.0); MEAN CORPUSCULAR VOLUME 80.3 fL (80.0-100.0); MEAN PLATELET VOLUME 8.7 fL (7.4-11.0); MONOCYTES # (AUTO) 0.4 x10^3/uL (0.3-0.8); NEUTROPHILS # (AUTO) 4.2 x10^3/uL (2.2-4.8); NEUTROPHILS % (AUTO) 73.4 % (42.0-75.0); PLATELET COUNT 341 X10^3/uL (150.0-450.0); RED BLOOD COUNT 4.24 X10^6/uL (4.7-6.0); RED CELL DISTRIBUTION WIDTH 14.9 % (11.6-16.5); WHITE BLOOD COUNT 5.7 X10^3/uL (3.6-10.0)
[2017-09-06 05:46] LABS: ALANINE AMINOTRANSFERASE 83 Units/L (12-78); ALBUMIN 2.9 g/dL (3.4-5.0); ALKALINE PHOSPHATASE 294 Units/L (46-116); ASPARTATE AMINO TRANSFERASE 458 Units/L (15-37); BLOOD UREA NITROGEN 19 mg/dL (7-18); CALCIUM 9.1 mg/dL (8.5-10.1); CARBON DIOXIDE 27.5 mmol/L (21-32); CHLORIDE 99 mmol/L (98-107); CREATININE 0.96 mg/dL (0.70-1.30); SODIUM 136 mmol/L (136-145); TOTAL PROTEIN 7.3 g/dL (6.4-8.2); eGFR BLACK RACES > 60 (>60); eGFR NON BLACK RACES > 60 (>60)
[2017-09-06] MEDS ORDERED: PROTONIX TAB 40 MG PO SCH (09:00)
[2017-09-06] MEDS: SORAFENIB TOSYLATE 400 MG PO SCH (09:05)
[2017-09-06] MEDS: MICRO K EXTEN CAP 10 MEQ PO SCH (09:05)
[2017-09-06] MEDS: NICOTINE PATCH TD SCH (09:05)
[2017-09-06] MEDS: NORVASC TAB 5 MG PO SCH (09:05)
[2017-09-06] MEDS: LASIX IVP SCH (09:05)
[2017-09-06] MEDS: CHRONULAC PO SCH (09:06)
--- NOTE | 2017-09-06 11:30 | PCM.PROG ---
Progress Note - Progress Note for Day of Date: 09/05/17 - Subjective Subjective: WAS ADMITTED FOR ABDOMINAL PAIN AND ASCITES. TODAY, HE IS ALERT AND ORIENTED, LYING IN BED ON MORNING ROUNDS. HE CONTINUES WITH COMPLAINTS OF ABDOMINAL PAIN. ON EXAMINATION, LUNGS ARE NOTED CLEAR TO AUSCULTATION. ABDOMEN IS DISTENDED AND TENDER. HE IS NPO FOR A LIVER US, MRI, AND EKD THIS MORNING. HIS VITAL SIGNS TODAY ARE 99.0-86-20-96%-115/84. LABS WERE OBTAINED THIS MORNING. ABNORMAL LAB VALUES INCLUDE THE FOLLOWING: RBC 4.08 , HGB 11.0, HCT 32.4, SODIUM 135, TOTAL BILI 2.90, AST 469, ALT 85, ALK PHOS 316 , ALBUMIN 3.0, AMMONIA 71. PARACENTESIS WAS NOT PERFORMED THIS MORNING DUE TO THERE NOT BEING A SUFFICIENT AMOUNT OF FLUID NOTED IN THE ABDOMEN. RADIOLOGIST DID REPORT MANY LIVER LESIONS. LIVER ULTRASOUND REPORTED SMALL ASCITIC FLUID COLLECTIONS AND RIGHT UPPER, RIGHT LOWER, AND LEFT LOWER QUARANTS OF THE ABDOMEN. MULTIPLE SOLID MASSES PRESENT INVOLVING THE LIVER. A HEPATITIS PANEL AND MRI WITH CONTRAST OF THE LIVER WAS ALSO ORDERED AND IS PENDING RESULTS. 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 FURTHER WORKUP AND TREATMENT FOR A REFERRAL FOR A LIVER TRANSPLANT IS RECOMMENDED. FURTHER WORKUP WILL BE COMPLETED AFTER DISCHARGE IN OFFICE. TODAY, WE WILL START LACTULOSE 10ML PO QID. OTHERWISE, WE PLAN TO FOLLOW UP WITH AM LABS AND CONTINUE TO MONITOR PATIENT. - Past Medical Family Social History Past Med/Fam/Surg Hx: No changes since H&P Allergies: Allergies No Known Drug Allergies Allergy (Verified 09/03/17 20:12) - Review of Systems ROS: No change since H&P - Vital Signs and I&O's Vital Signs: Temperature 97.9 F Pulse Rate [Left] 73 Pulse Rate 80 Respiratory Rate 18 Blood Pressure [Left Arm] 101/75 Blood Pressure 133/80 O2 Sat by Pulse Oximetry 95 Intake and Output: Intake & Output 09/03/17 09/04/17 09/05/17 09/06/17 11:59 11:59 11:59 11:59 Intake Total 260 1080 490 Output Total 375 Balance 260 705 490 - Physical Exam Oriented: Normal Eyes: Normal Ear: Normal Nose: Normal Throat: Normal Respiratory: Normal Cardiovascular: Normal : Normal Auscultation: Bowel Sounds: Normal Palpation: Normal Tenderness: Diffuse Skin: Normal Musculoskeletal: Normal Psychiatric: Normal Mood Description: Calm Affect: Normal Speech Pattern: Clear, Appropriate - Laboratory and Diagnostics Result Diagrams: 09/06/17 04:18 09/06/17 04:18 Labs: Laboratory WBC 5.7 X10^3/uL (3.6-10.0) 09/06/17 04:18 RBC 4.24 X10^6/uL (4.7-6.0) L 09/06/17 04:18 Hgb 11.5 g/dL (13.5-18.0) L 09/06/17 04:18 Hct 34.0 % (42.0-54.0) L 09/06/17 04:18 MCV 80.3 fL (80.0-100.0) 09/06/17 04:18 MCH 27.2 pg (27.0-34.0) 09/06/17 04:18 MCHC 33.8 g/dL (33.0-35.0) 09/06/17 04:18 RDW 14.9 % (11.6-16.5) 09/06/17 04:18 Plt Count 341 X10^3/uL (150.0-450.0) 09/06/17 04:18 MPV 8.7 fL (7.4-11.0) 09/06/17 04:18 Neut % 73.4 % (42.0-75.0) 09/06/17 04:18 Lymph % 18.0 % (21.0-51.0) L 09/06/17 04:18 [place] % 7.0 % (0.0-13.0) 09/06/17 04:18 Eos % 0.8 % (0.9-2.9) L 09/06/17 04:18 Baso % 0.8 % (0.2-1.0) 09/06/17 04:18 Neut # 4.2 x10^3/uL (2.2-4.8) 09/06/17 04:18 Lymph # 1.0 X10^3/uL (1.3-2.9) L 09/06/17 04:18 [place] # 0.4 x10^3/uL (0.3-0.8) 09/06/17 04:18 Eos # 0.0 x10^3/uL (0.0-0.2) 09/06/17 04:18 Baso # 0.0 X10^3/uL (0.0-0.1) 09/06/17 04:18 Absolute Nucleated RBC 0.1 /100WBC 09/06/17 04:18 INR Target Range - 09/04/17 04:50 INR 1.30 (0.8-1.3) 09/04/17 04:50 PTT 30.9 SECONDS (22.9-36.5) 09/04/17 04:50 PTT Comment - 09/04/17 04:50 Sodium 136 mmol/L (136-145) 09/06/17 04:18 Corrected Sodium TNP 09/06/17 04:18 Potassium 4.1 mmol/L (3.5-5.1) 09/06/17 04:18 Chloride 99 mmol/L (98-107) 09/06/17 04:18 Carbon Dioxide 27.5 mmol/L (21-32) 09/06/17 04:18 BUN 19 mg/dL (7-18) H 09/06/17 04:18 Creatinine 0.96 mg/dL (0.70-1.30) 09/06/17 04:18 Est GFR (MDRD) Af Amer > 60 (>60) 09/06/17 04:18 Est GFR (MDRD) Non-Af > 60 (>60) 09/06/17 04:18 Glucose 81 mg/dL (65-99) 09/06/17 04:18 Hemoglobin A1c 5.3 % (4.5-6.2) 09/03/17 15:42 Calcium 9.1 mg/dL (8.5-10.1) 09/06/17 04:18 Corrected Calcium 10.0 mg/dL (8.5-10.1) 09/06/17 04:18 Total Bilirubin 3.30 mg/dL (0.2-1.0) H 09/06/17 04:18 Direct Bilirubin 1.38 mg/dL (0-0.2) H 09/04/17 00:00 Indirect Bilirubin 1.12 mg/dL (0.2-0.8) H 09/04/17 00:00 AST 458 Units/L (15-37) H 09/06/17 04:18 ALT 83 Units/L (12-78) H 09/06/17 04:18 Alkaline Phosphatase 294 Units/L (46-116) H 09/06/17 04:18 Ammonia 71 umol/L (11-32) H 09/05/17 04:15 Total Protein 7.3 g/dL (6.4-8.2) 09/06/17 04:18 Albumin 2.9 g/dL (3.4-5.0) L 09/06/17 04:18 Globulin 4.4 g/dL (2.5-4.5) 09/06/17 04:18 Albumin/Globulin Ratio 0.7 Ratio (1.1-2.1) L 09/06/17 04:18 Amylase 101 Units/L (25-115) 09/03/17 15:42 Lipase 132 Units/L (73-393) 09/03/17 15:42 Specimen Type Clean catch urine 09/03/17 16:17 Urine Color Dark yellow (YELLOW) 09/03/17 16:17 Urine Appearance Slightly hazy (CLEAR) 09/03/17 16:17 Urine pH 6.0 (5.0 - 8.0) 09/03/17 16:17 Ur Specific [place] 1.020 (1.000-1.030) 09/03/17 16:17 Urine Protein 2+ (NEGATIVE) 09/03/17 16:17 Urine Glucose (UA) Negative (NEGATIVE) 09/03/17 16:17 Urine Ketones 1+ (NEGATIVE) 09/03/17 16:17 Urine Occult Blood Negative (NEGATIVE) 09/03/17 16:17 Urine Nitrite Negative (NEGATIVE) 09/03/17 16:17 Urine Bilirubin 1+ (NEGATIVE) 09/03/17 16:17 Urine Urobilinogen 2+ (NORMAL) 09/03/17 16:17 Ur Leukocyte Esterase 1+ (NEGATIVE) 09/03/17 16:17 Urine RBC 1-2 /HPF (NEGATIVE) 09/03/17 16:17 Urine WBC 1-2 /HPF (NEGATIVE) 09/03/17 16:17 Ur Squamous Epith Cells Rare /HPF (NEGATIVE) 09/03/17 16:17 Amorphous Sediment Trace /HPF (NEGATIVE) 09/03/17 16:17 Urine Bacteria 1+ /HPF (NEGATIVE) 09/03/17 16:17 Hyaline Casts Rare /LPF (NEGATIVE) 09/03/17 16:17 Ur Culture Indicated? No/not indicated 09/03/17 16:17 - Plan (1) Abdominal pain Status: Acute Qualifiers: Abdominal location: generalized Qualified Code(s): R10.84 - Generalized abdominal pain Plan: MRI OF THE LIVER, DILAUDID 2MG Q4H PRN, OXYCODONE 5MG Q6H PRN, CONTINUE TO MONITOR (2) Ascites Status: Acute Qualifiers: Ascites type: malignant Qualified Code(s): R18.0 - Malignant ascites Plan: LASIX 40MG IV BID, CONTINUE TO MONITOR (3) Hepatic cancer Status: Chronic Qualifiers: Liver malignancy type: unspecified liver malignancy Qualified Code(s): C22.9 - Malignant neoplasm of liver, not specified as primary or secondary Plan: CONTINUE TO MONITOR, MRI WITH CONTRAST OF THE LIVER (4) Hepatitis C Status: Chronic Qualifiers: Viral hepatitis chronicity: chronic Hepatic coma status: with hepatic coma Qualified Code(s): B18.2 - Chronic viral hepatitis C Plan: HEPATITIS PANEL (5) Serum ammonia increased Status: Acute Plan: LACTULOSE 10ML PO QID, CONTINUE TO MONITOR
[2017-09-06 12:03] VITALS: BP 134/74
[2017-09-10 06:23] LABS: HCV VIRAL LOG 5.1 log IU
== END 2017-09-06 13:40 | disposition home or self-care (01) | DRG 948 ==
LOC: ER 15:20 → MED/SURG 18:15
PROVIDERS: ADMIT Internal Medicine; ATTEND Internal Medicine
PROC: 0DJ08ZZ Inspection of Upper Intestinal Tract, Via Natural or Artificial Opening Endoscopic (ICD-10-PCS; principal; 2017-09-05 19:45)
DX: R18.0 Malignant ascites (principal); C22.8 Malignant neoplasm of liver, primary, unspecified as to type; R10.11 Right upper quadrant pain; R10.13 Epigastric pain; E72.20 Disorder of urea cycle metabolism, unspecified; R06.02 Shortness of breath; B18.2 Chronic viral hepatitis C; K20.8 Other esophagitis; K29.00 Acute gastritis without bleeding; K30 Functional dyspepsia
CPT/HCPCS: 36415; 74176; 74182; 76700; 80048; 80053; 80076; 81001; 82105; 82140; 82150; 83036; 83690; 85025; 85610; 85730; 87522; 87902; 96365; 96372; 96374; 99284; A4216; A4222; A4217; J1170; J1940; J3490